=== PATIENT | male | born 1960 | race Caucasian/White ===

== ENCOUNTER 2017-12-25 15:54 | Emergency (ER) | payer OTHER ==
[~2017-12-25] VITALS: Ht 177.8 cm; Wt 88.4 kg
[2017-12-25 16:00] VITALS: BP 148/77; PULSE 75; RESP 16; TEMP 98.6; O2SAT 97
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
[2017-12-25] MEDS ORDERED: SODIUM CHLORIDE 0.9% FLUSH 10 ML FLUSH IVF PRN (17:30)
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
[2017-12-25] MEDS ORDERED: CYCL10TA PO (18:48)
[2017-12-25] MEDS ORDERED: NAPR500 PO (18:48)
== END 2017-12-25 19:02 | disposition home or self-care (01) ==
LOC: PHEFT 15:54
DX: S16.1XXA Strain of muscle, fascia and tendon at neck level, initial encounter (principal); M54.6 Pain in thoracic spine; V89.2XXA Person injured in unspecified motor-vehicle accident, traffic, initial encounter
CPT/HCPCS: 71045; 72125; 72128; 99283